=== PATIENT | male | born 1970 | race Caucasian/White ===

== ENCOUNTER 2016-07-15 20:27 | Emergency (ER) | payer OTHER ==
[2016-07-15 21:53] VITALS: BP 128/78
== END 2016-07-15 21:53 | disposition home or self-care (01) ==
LOC: ED 20:27
DX: S92.911A Unspecified fracture of right toe(s), initial encounter for closed fracture (principal); E11.9 Type 2 diabetes mellitus without complications; X58.XXXA Exposure to other specified factors, initial encounter; Y93.89 Activity, other specified; Y99.8 Other external cause status; Y92.89 Other specified places as the place of occurrence of the external cause